=== PATIENT | female | born 1995 | race Caucasian/White ===

== ENCOUNTER 2019-05-09 13:01 | Emergency (ER) | payer MEDICAID, SELFPAY ==
[2019-05-09 13:05] VITALS: BP 119/86; PULSE 117; RESP 17; TEMP 37.4; O2SAT 97; BMI 33.0
--- NOTE | 2019-05-09 13:13 | ED_ITS ---
HPI - Abdominal Pain General: Chief Complaint: Abdominal Pain Stated Complaint: , ABDOMEN PAIN Time Seen by Provider: 05/09/19 13:07 History of Present Illness: HPI narrative: Patient is G2, P1 23-year-old female who comes to the ED for abdominal pain after a positive test. Patient states her last period was about 2 weeks ago. She took a test this morning and it was positive. She was having abdominal cramping today. Denies any vaginal discharge or any vaginal bleeding, nausea, vomiting or fevers. Associated Symptoms: Denies chills, constipation, diarrhea, dysuria, fever(s), hematochezia, hematuria, nausea and vomiting Review of Systems Const: Denies: fever, chills or fatigue Eyes: Denies: change in vision or eye discomfort ENMT: Denies: throat pain, painful swallowing, nasal discharge or nasal congestion Card: Denies: chest pain, palpitations, edema, swelling of feet/ankles, shortness of breath on exertion or shortness of breath when lying down Resp: Denies: shortness of breath, productive cough or non-productive cough GI: Denies: abdominal pain, nausea, vomiting, diarrhea, constipation or blood in stool : Denies: flank pain, painful urination or blood in urine Musc: Denies: neck pain, back pain or extremity swelling Skin/Breast: Denies: rash or new lesion Neuro: Denies: headache, numbness in extremities or weakness in extremities PFS ED PFSH: Social History Smoking and tobacco status: current every day smoker Physical Exam Const: COMMON NORMALS: oriented x3 HENMT: COMMON NORMALS: normocephalic HEAD & SCALP: normocephalic MOUTH: oral and palatal mucosa normal THROAT: posterior oropharynx normal and uvula midline Neck/C-Spine: COMMON NORMALS: supple GENERAL: Yes normal visual inspection Resp: COMMON NORMALS: normal respiratory effort, no retractions, no use of accessory muscles and clear to auscultation bilaterally AUSCULTATION: clear to auscultation bilaterally Cardio: COMMON NORMALS: regular rate, regular rhythm, S1 normal heart sound, S2 normal heart sound, no gallops, no clicks, no murmurs and peripheral pulses 2+ throughout RATE: regular rate RHYTHM: regular rhythm HEART SOUNDS: S1 normal and S2 normal PERIPHERAL PULSES: pulses 2+ throughout GI: COMMON NORMALS: normal to inspection, nondistended, normoactive bowel sounds, soft to palpation, non-tender and no masses PALPATION: Yes soft : COMMON NORMALS: Yes no CVA tenderness BLADDER/KIDNEY EXAM: Yes no CVA tenderness Back/Pelvis: COMMON NORMALS: no CVA tenderness Extremity: COMMON NORMALS: normal to inspection and normal capillary refill Neuro: COMMON NORMALS: oriented x3 GAIT: Yes normal gait Skin: GENERAL SKIN EXAM: dry skin Course Vital Signs: Vital signs: Vital Signs Temperature 99.3 F 05/09/19 13:05 Pulse Rate 72 05/09/19 15:20 Respiratory Rate 17 05/09/19 15:20 Blood Pressure 131/68 05/09/19 15:20 Pulse Oximetry 99 05/09/19 15:20 MDM - Abdominal Pain MDM Narrative: Medical decision making narrative: Patient is a 23-year-old female who comes into the ED after a positive test with some abdominal cramping. Patient has no discharge or bleeding. hCG quant was 150. Patient was told to return in 72 hours if she is having any symptoms such as severe abdominal pain, vaginal bleeding or fevers. I told her to call her MACHINE COIL ASSEMBLER doctor to set up an appointment. Patient understood and agreed with plan. Lab Data: Attestation: I reviewed the patient's lab results. Labs: Lab Results 05/09/19 05/09/19 05/09/19 Range/Units 13:38 13:38 14:13 WBC 10.3 H (4.0-10.0) 10^3/ uL RBC 4.89 (4.1-5.3) 10^6/u L Hgb 14.0 (11.5-15.3) g/dL Hct 43.6 (37.0-47.0) % MCV 89.2 (81-99) fL MCH 28.6 (28.0-34.0) pg MCHC 32.1 (30.0-36.0) g/dL RDW 13.4 (12.1-15.1) % Plt Count 324 (130-400) 10^3/c mm MPV 10.3 (7.4-10.4) fL Neut % (Auto) 72.8 % Lymph % (Auto) 19.6 % [place] % (Auto) 5.9 % Eos % (Auto) 1.0 % Baso % (Auto) 0.5 % Neut # (Auto) 7.5 (1.8-7.7) 10^3/u L Lymph # (Auto) 2.0 (0.8-4.8) 10^3/u L [place] # (Auto) 0.6 (0.2-0.9) 10^3/u L Eos # (Auto) 0.1 (0.0-0.8) 10^3/u L Baso # (Auto) 0.1 (0.0-0.1) 10^3/u L Nucleated RBC % (a uto) 0 % Nucleated RBCs # 0.0 /100WBC Sodium 135 L (136-145) mmol/L Potassium 3.8 (3.5-5.1) mmol/L Chloride 103 (98-107) mmol/L Carbon Dioxide 23 (22-29) mmol/L Anion Gap 12.8 (5-19) BUN 11 (6-20) mg/dL Creatinine 0.6 (0.5-0.9) mg/dL GFR Calculation 123.9 (90-130) mL/min Glucose 99 (65-115) mg/dL Calculated Osmolal ity 276 L (285-295) mOsm/k g Calcium 9.9 (8.5-10.5) mg/dL Total Bilirubin 0.2 (0.15-1.2) mg/dL AST 14 (0-32) U/L ALT 11 (0-33) U/L Alkaline Phosphata se 52 (35-105) IU/L Total Protein 7.4 (6.6-8.7) g/dL Albumin 4.3 (3.5-5.2) g/dL Globulin 3.1 (1.3-4.6) g/dL Ser , Aayush i-Qnt 153.10 mIU/mL Urine Color Yellow (Yellow) Urine Appearance Hazy A (CLEAR) Urine pH 8 H (5-7) Ur Specific Gravit y 1.015 (1.005-1.030) Urine Protein Neg (Negative) Urine Glucose (UA) Norm (Normal) Urine Ketones Negative (Negative) Urine Blood Neg (Negative) Urine Nitrate Negative (Negative) Urine Bilirubin Neg (NEGATIVE) Prot Sulfosalicyli c Acd Negative Urine Urobilinogen Norm (Negative) mg/dL Ur Leukocyte Liv ase 1+ H (Negative) Urine RBC None (0-2) /hpf Urine WBC 5-10 H (0-5) /hpf Ur Squamous Epith Cells 55-80 H (0-5) Amorphous Sediment 2+ Urine Bacteria 1+ H (NONE) Discharge Plan Discharge Patient Disposition: Home, Self-Care Clinical Impression: Qualifiers: Weeks of gestation: less than 8 weeks Qualified Code(s): Z3A.01 - Less than 8 weeks gestation of Condition: Stable Prescriptions: No Action Tylenol Extra Strength 500 mg Tablet 1,000 mg PO PRN RF: 0 Discharge Orders: Discharge Order (Routine); Ordered 05/09/19 Ordered By: Evreardo Ambrose Referrals: Kindra Gong APN [Primary Care Provider] - Jani Sarmiento APN [Family Provider] - Discharge Diet: Regular Discharge Activity: Resume usual activity Patient Instructions: (ED), Abdominal Pain in (ED) Activity Restrictions/Additional Instructions: Follow-up with your MACHINE COIL ASSEMBLER doctor in the next 2 to set up appointment. Return to the ED in the next 72 hours if you are having continuing abdominal pain, vaginal bleeding, fevers or chills return to the ED for reevaluation. Drink plenty fluids stay hydrated. Discharge Date/Time: 05/09/19 15:21 Coding Level of Care Code ED Outreach Educator for Syl Fwheidi Exam Comprehensive
[2019-05-09 13:56] LABS: Basophils # 0.1 10^3/uL (0.0-0.1); Basophils % 0.5 %; Eosinophils # 0.1 10^3/uL (0.0-0.8); Hematocrit 43.6 % (37.0-47.0); Lymphocytes % 19.6 %; Mean Corpuscular HGB Conc 32.1 g/dL (30.0-36.0); Mean Corpuscular Hemoglobin 28.6 pg (28.0-34.0); Mean Corpuscular Volume 89.2 fL (81-99); Mean Platelet Volume 10.3 fL (7.4-10.4); Monocytes # 0.6 10^3/uL (0.2-0.9); Monocytes % 5.9 %; Neutrophils # 7.5 10^3/uL (1.8-7.7); Neutrophils % 72.8 %; Nucleated Red Blood Cells % 0 %; Platelet Count 324 10^3/cmm (130-400); Red Blood Count 4.89 10^6/uL (4.1-5.3); Red Cell Distribution Width 13.4 % (12.1-15.1); White Blood Count 10.3 10^3/uL (4.0-10.0)
[2019-05-09 14:24] LABS: Alanine Aminotransferase 11 U/L (0-33); Albumin Level 4.3 g/dL (3.5-5.2); Alkaline Phosphatase 52 IU/L (35-105); Anion Gap 12.8 (5-19); Aspartate Amino Transferase 14 U/L (0-32); Blood Urea Nitrogen 11 mg/dL (6-20); Calcium 9.9 mg/dL (8.5-10.5); Carbon Dioxide 23 mmol/L (22-29); Chloride 103 mmol/L (98-107); Globulin 3.1 g/dL (1.3-4.6); Glomerular Filtration Rate 123.9 mL/min (90-130); Glucose 99 mg/dL (65-115); Osmolality Calculated 276 mOsm/kg (285-295); Potassium 3.8 mmol/L (3.5-5.1); Sodium 135 mmol/L (136-145); Total Bilirubin 0.2 mg/dL (0.15-1.2); Total Protein 7.4 g/dL (6.6-8.7)
[2019-05-09 14:43] LABS: Urine Appearance Hazy (CLEAR); Urine Color Yellow (Yellow)
[2019-05-09 14:44] LABS: Bilirubin Urine Neg (NEGATIVE); Blood Urine Neg (Negative); Glucose Urine UA Norm (Normal); Ketones Urine Negative (Negative); Leukocyte Esterase Urine 1+ (Negative); Nitrate Urine Negative (Negative); Protein Urine Neg (Negative); Specific Gravity, Urine 1.015 (1.005-1.030); Sulfosalicylic Acid Urine Negative; Urobilinogen Urine Norm (Negative); pH Urine 8 (5-7)
[2019-05-09 14:54] LABS: Squamous Epithelial Cell Urine 55-80 (0-5)
[2019-05-09 14:55] LABS: Add Urine Culture? Yes; Amorphous Sediment Urine 2+; Bacteria Urine 1+
[2019-05-09 15:20] VITALS: BP 131/68; PULSE 72; RESP 17; O2SAT 99
== END 2019-05-09 15:21 | disposition home or self-care (01) ==
PROVIDERS: Emergency Provider Physician Assistant; Family Provider Nurse Practitioner Family; PCP Nurse Practitioner Family
DX: O26.891 Other specified pregnancy related conditions, first trimester (principal); R10.9 Unspecified abdominal pain; Z3A.08 8 weeks gestation of pregnancy; O99.331 Smoking (tobacco) complicating pregnancy, first trimester; F17.210 Nicotine dependence, cigarettes, uncomplicated
CPT/HCPCS: 12345; 36415; 80053; 81001; 84702; 85025; 87086; 99282

== ENCOUNTER 2019-05-12 18:02 | Emergency (ER) | payer MEDICAID, SELFPAY ==
[2019-05-12 18:13] VITALS: BMI 32.8
[2019-05-12 18:14] VITALS: BP 130/69; PULSE 98; RESP 16; TEMP 37.6; O2SAT 98
--- NOTE | 2019-05-12 18:16 | ED_ITS ---
HPI - Abdominal Pain General: Chief Complaint: Abdominal Pain Stated Complaint: abd pain Time Seen by Provider: 05/12/19 18:05 History of Present Illness: HPI narrative: Patient is a 23-year-old G2, P1 female who comes to the ED with abdominal pain. She was seen here in the ED 3 days ago due to a positive at-home test and some abdominal pain. Last. Was about 2 to 3 weeks ago. She states she currently having abdominal pain that comes and goes she rates the pain as a 1 or 2 out of 10. She does have some nausea in the mornings. She denies any fevers, vomiting, vaginal discharge or bleeding. She went and saw her PCP yesterday and she was given a prescription for vitamins and Zofran for nausea. Patient states she does not want any pain med for her abdominal pain. Associated Symptoms: Reports nausea; Denies chills, constipation, diarrhea, dysuria, fever(s), hematochezia, hematuria and vomiting Review of Systems Const: Denies: fever, chills or fatigue Eyes: Denies: change in vision or eye discomfort ENMT: Denies: throat pain, painful swallowing, nasal discharge or nasal congestion Card: Denies: chest pain, palpitations, edema, swelling of feet/ankles, shortness of breath on exertion or shortness of breath when lying down Resp: Denies: shortness of breath, productive cough or non-productive cough GI: Reports: abdominal pain and nausea; Denies: vomiting, diarrhea, constipation or blood in stool : Denies: flank pain, painful urination, blood in urine, vaginal bleeding or vaginal discharge Musc: Denies: neck pain, back pain or extremity swelling Skin/Breast: Denies: rash or new lesion Neuro: Denies: headache, numbness in extremities or weakness in extremities PFS ED PFSH: Social History Smoking and tobacco status: current every day smoker Physical Exam Narrative: EXAM NARRATIVE: Patient is a 23-year-old female who is sitting comfortably on the exam bed when I enter the room. She appears in no acute distress or pain. Const: COMMON NORMALS: oriented x3 HENMT: COMMON NORMALS: normocephalic HEAD & SCALP: normocephalic MOUTH: oral and palatal mucosa normal THROAT: posterior oropharynx normal and uvula midline Neck/C-Spine: COMMON NORMALS: supple GENERAL: Yes normal visual inspection Lymph: LYMPHATIC: no lymphadenopathy noted (No cervical lymph nodes palpated.) Resp: COMMON NORMALS: normal respiratory effort, no retractions, no use of accessory muscles and clear to auscultation bilaterally EFFORT & INSPECTION: Yes able to speak in complete sentences, No abnormal respiratory pattern, No tachypneic, No respiratory distress and No labored AUSCULTATION: clear to auscultation bilaterally Cardio: COMMON NORMALS: regular rate, regular rhythm, S1 normal heart sound, S2 normal heart sound, no gallops, no clicks, no murmurs and peripheral pulses 2+ throughout RATE: regular rate RHYTHM: regular rhythm HEART SOUNDS: S1 normal and S2 normal PERIPHERAL PULSES: pulses 2+ throughout GI: COMMON NORMALS: normal to inspection, nondistended, normoactive bowel sounds, soft to palpation, non-tender, no hepatosplenomegaly and no masses INSPECTION: Yes central obesity PALPATION: Yes soft, No tender, No guarding and Yes no hepatosplenomegaly : COMMON NORMALS: Yes no CVA tenderness BLADDER/KIDNEY EXAM: Yes no CVA tenderness Back/Pelvis: COMMON NORMALS: no CVA tenderness Extremity: COMMON NORMALS: normal to inspection Neuro: COMMON NORMALS: oriented x3 GAIT: Yes normal gait Skin: COMMON NORMALS: no rashes or lesions noted GENERAL SKIN EXAM: no rashes or lesions noted and dry skin Course Vital Signs: Vital signs: Vital Signs Temperature 99.6 F 05/12/19 18:14 Pulse Rate 80 05/12/19 19:59 Respiratory Rate 16 05/12/19 19:59 Blood Pressure 130/69 05/12/19 18:14 Pulse Oximetry 96 05/12/19 19:59 MDM - Abdominal Pain MDM Narrative: Medical decision making narrative: Patient is a 23-year-old female that is and has abdominal pain. She does not have any vaginal bleeding or vaginal discharge. Her abdominal pain is mild and she describes it about a 1-2 out of 10 that comes and goes. Physical exam shows a patient who is showing no acute distress or pain. hCG quant test was 562. 3 days ago hCG quant was 150. appears to be progressing normally. CBC and CMP were unremarkable. Urinalysis showed some bacteria and elevated white blood cell count. Patient diagnosed with under 8 weeks and a UTI. She was given an antibiotic for her UTI. She has already seen her PCP for within the last 2 days and told to schedule her next follow-up appointment. I told patient she can return to the ED for reevaluation if she is having worsening symptoms or vaginal bleeding or fevers. Lab Data: Attestation: I reviewed the patient's lab results. Labs: Lab Results 05/12/19 05/12/19 05/12/19 Range/Units 18:21 18:21 18:41 WBC 9.9 (4.0-10.0) 10^3/ uL RBC 4.42 (4.1-5.3) 10^6/u L Hgb 12.8 (11.5-15.3) g/dL Hct 39.2 (37.0-47.0) % MCV 88.7 (81-99) fL MCH 29.0 (28.0-34.0) pg MCHC 32.7 (30.0-36.0) g/dL RDW 13.2 (12.1-15.1) % Plt Count 293 (130-400) 10^3/c mm MPV 10.3 (7.4-10.4) fL Neut % (Auto) 59.8 % Lymph % (Auto) 28.3 % [place] % (Auto) 9.6 % Eos % (Auto) 1.6 % Baso % (Auto) 0.5 % Neut # (Auto) 5.9 (1.8-7.7) 10^3/u L Lymph # (Auto) 2.8 (0.8-4.8) 10^3/u L [place] # (Auto) 1.0 H (0.2-0.9) 10^3/u L Eos # (Auto) 0.2 (0.0-0.8) 10^3/u L Baso # (Auto) 0.1 (0.0-0.1) 10^3/u L Nucleated RBC % (a uto) 0 % Nucleated RBCs # 0.0 /100WBC Sodium 138 (136-145) mmol/L Potassium 3.8 (3.5-5.1) mmol/L Chloride 104 (98-107) mmol/L Carbon Dioxide 23 (22-29) mmol/L Anion Gap 14.8 (5-19) BUN 11 (6-20) mg/dL Creatinine 0.7 (0.5-0.9) mg/dL GFR Calculation 103.7 (90-130) mL/min Glucose 99 (65-115) mg/dL Calculated Osmolal ity 282 L (285-295) mOsm/k g Calcium 9.7 (8.5-10.5) mg/dL Total Bilirubin 0.2 (0.15-1.2) mg/dL AST 15 (0-32) U/L ALT < 5 (0-33) U/L Alkaline Phosphata se 52 (35-105) IU/L Total Protein 7.1 (6.6-8.7) g/dL Albumin 4.2 (3.5-5.2) g/dL Globulin 2.9 (1.3-4.6) g/dL Ser , Aayush i-Qnt 562.10 mIU/mL Urine Color Yellow (Yellow) Urine Appearance Cloudy (CLEAR) Urine pH 6 (5-7) Ur Specific Gravit y 1.020 (1.005-1.030) Urine Protein Neg (Negative) Urine Glucose (UA) Norm (Normal) Urine Ketones Negative (Negative) Urine Blood Neg (Negative) Urine Nitrate Negative (Negative) Urine Bilirubin Neg (NEGATIVE) Urine Urobilinogen Norm (Negative) mg/dL Ur Leukocyte Liv ase 2+ H (Negative) Urine RBC 0-4 H (0-2) /hpf Urine WBC 25-40 H (0-5) /hpf Ur Squamous Epith Cells 25-40 H (0-5) Urine Bacteria 1+ H (NONE) Discharge Plan Discharge Patient Disposition: Home, Self-Care Clinical Impression: UTI (urinary tract infection) in in first trimester Qualifiers: Weeks of gestation: less than 8 weeks Qualified Code(s): Z3A.01 - Less than 8 weeks gestation of Condition: Stable Prescriptions: New nitrofurantoin macrocrystal 100 mg capsule 100 mg PO BID 5 Days Qty: 10 RF: 0 No Action Zofran 4 mg Tablet 4 mg PO Q4H PRN (Reason: Nausea) RF: 0 28 mg iron- 800 mcg Tablet 1 tab PO DAILY RF: 0 acetaminophen [Tylenol Extra Strength] 500 mg Tablet 1,000 mg PO PRN RF: 0 Discharge Orders: Discharge Order (Routine); Ordered 05/12/19 Ordered By: Everardo Ambrose Referrals: Jani Sarmiento APN [Family Provider] - Discharge Diet: Regular Discharge Activity: Resume usual activity and Increase activity as tolerated Patient Instructions: (ED), Urinary Tract Infection in Women (ED) Activity Restrictions/Additional Instructions: Follow-up with your PCP or water quality specialist doctor at your next scheduled first trimester appointment. Take full course of antibiotic as prescribed. Continue taking your home meds such as vitamins and the previously prescribed Zofran as needed for nausea. Return to the ED if you are having worsening or severe abdominal pain or vaginal bleeding or fevers. Discharge Date/Time: 05/12/19 20:00 Coding Level of Care Code ED Territory Sales Consultant for Henryg Fwd Exam Comprehensive
[2019-05-12 18:27] LABS: Basophils # 0.1 10^3/uL (0.0-0.1); Basophils % 0.5 %; Eosinophils # 0.2 10^3/uL (0.0-0.8); Eosinophils % 1.6 %; Hematocrit 39.2 % (37.0-47.0); Hemoglobin 12.8 g/dL (11.5-15.3); Lymphocytes # 2.8 10^3/uL (0.8-4.8); Lymphocytes % 28.3 %; Mean Corpuscular HGB Conc 32.7 g/dL (30.0-36.0); Mean Corpuscular Volume 88.7 fL (81-99); Mean Platelet Volume 10.3 fL (7.4-10.4); Monocytes % 9.6 %; Neutrophils # 5.9 10^3/uL (1.8-7.7); Neutrophils % 59.8 %; Nucleated Red Blood Cells % 0 %; Platelet Count 293 10^3/cmm (130-400); Red Blood Count 4.42 10^6/uL (4.1-5.3); Red Cell Distribution Width 13.2 % (12.1-15.1); White Blood Count 9.9 10^3/uL (4.0-10.0)
--- NOTE | 2019-05-12 18:36 | PC.NURSE ---
Pt given clean catch kit with instructions, ambulated to BR with no assist.
[2019-05-12 18:52] LABS: Alanine Aminotransferase < 5 U/L (0-33); Albumin Level 4.2 g/dL (3.5-5.2); Alkaline Phosphatase 52 IU/L (35-105); Anion Gap 14.8 (5-19); Aspartate Amino Transferase 15 U/L (0-32); Blood Urea Nitrogen 11 mg/dL (6-20); Calcium 9.7 mg/dL (8.5-10.5); Carbon Dioxide 23 mmol/L (22-29); Chloride 104 mmol/L (98-107); Globulin 2.9 g/dL (1.3-4.6); Glomerular Filtration Rate 103.7 mL/min (90-130); Glucose 99 mg/dL (65-115); Osmolality Calculated 282 mOsm/kg (285-295); Potassium 3.8 mmol/L (3.5-5.1); Sodium 138 mmol/L (136-145); Total Bilirubin 0.2 mg/dL (0.15-1.2); Total Protein 7.1 g/dL (6.6-8.7)
[2019-05-12 19:22] LABS: Add Urine Culture? No; Bacteria Urine 1+; Bilirubin Urine Neg (NEGATIVE); Blood Urine Neg (Negative); Glucose Urine UA Norm (Normal); Ketones Urine Negative (Negative); Leukocyte Esterase Urine 2+ (Negative); Nitrate Urine Negative (Negative); Protein Urine Neg (Negative); RBC Urine 0-4 /hpf (0-2); Squamous Epithelial Cell Urine 25-40 (0-5); Urine Appearance Cloudy (CLEAR); Urine Color Yellow (Yellow); Urobilinogen Urine Norm (Negative); WBC Urine 25-40 /hpf (0-5); pH Urine 6 (5-7)
[2019-05-12 19:59] VITALS: PULSE 80; RESP 16; O2SAT 96
== END 2019-05-12 20:00 | disposition home or self-care (01) ==
PROVIDERS: Emergency Provider Physician Assistant; Family Provider Nurse Practitioner Family
DX: O23.41 Unspecified infection of urinary tract in pregnancy, first trimester (principal); Z3A.00 Weeks of gestation of pregnancy not specified; O99.331 Smoking (tobacco) complicating pregnancy, first trimester; F17.200 Nicotine dependence, unspecified, uncomplicated
CPT/HCPCS: 12345; 80053; 81001; 84702; 85025; 99282; A9270

== ENCOUNTER 2019-06-20 07:37 | Outpatient (CLI) | payer MEDICAID, SELFPAY ==
--- NOTE | 2019-06-20 07:42 | US_ITS ---
WS: [id number] EARLY OBSTETRICAL ULTRASOUND (<14 WEEKS). HISTORY: SCREENING FOR UNCERTAIN DATES COMPARISON: None available. Single intrauterine gestational sac is identified. Cardiac activity at 164 BPM. B[place]elia-rump length veronique sures 3.2 cm which corresponds to a gestation of 10w0d. Normal-appearing yolk sac and amnion demonstr ated. No subchorionic hemorrhage. No free fluid. Normal size ovaries with no mass. Normal vascularity. Cervix is closed and normal length of 4.5 cm. US/US OB <= 14 weeks fetus [id number] IMPRESSION: 1. Single intrauterine gestation of 10 weeks 0 days with an EDC of 01/16/2020. 2. Normal cardiac rate.
== END 2019-06-20 07:38 | disposition home or self-care (01) ==
LOC: RAD 07:41
PROVIDERS: PCP Nurse Practitioner Family; Visit Provider Family Medicine
DX: Z36.87 Encounter for antenatal screening for uncertain dates (principal); Z3A.10 10 weeks gestation of pregnancy
CPT/HCPCS: 76801

== ENCOUNTER 2019-08-10 06:48 | Emergency (ER) | payer MEDICAID, SELFPAY ==
[2019-08-10 06:58] VITALS: BP 149/83; PULSE 103; RESP 18; TEMP 36.3; O2SAT 100; BMI 32.3
--- NOTE | 2019-08-10 07:13 | W.ED.ABDPA2 ---
HPI - Abdominal Pain General: Chief Complaint: Abdominal Pain Stated Complaint: ABD PAIN/17 WEEKS PREG Time Seen by Provider: 08/10/19 07:11 History of Present Illness: HPI narrative: Patient is a 24-year-old female that is 17 weeks comes to the ED with UTI symptoms. Patient says symptoms started this morning. She is complaining of lower pelvic pain located in her over the bladder and pain when she urinates. She has some chronic lower back pain and she says this is currently making it feel little worse. She is having some nausea but has not vomited. She took Tylenol this morning to help with abdominal pain and stated she currently does not need any pain meds here in the ED. Patient did say her urine seemed a little darker this morning than usual. Denies any complications with this and has been to all of her OB appointments. She currently does not have any vaginal discharge or vaginal bleeding. Denies any fever, chest pain, shortness of breath, chills, diarrhea, constipation, blood in the stool, hematuria. Associated Symptoms: Reports dysuria and nausea; Denies chills, constipation, diarrhea, fever(s), hematochezia, hematuria and vomiting Related Data: Date of Last Menstrual Period: 04/10/19 Review of Systems Const: Denies: fever(s), chills or fatigue Eyes: Denies: change in vision or eye discomfort ENMT: Denies: throat pain, odynophagia, nasal discharge or nasal congestion Card: Denies: chest pain, palpitations, edema, swelling of feet/ankles, dyspnea on exertion or orthopnea Resp: Denies: dyspnea, productive cough or non-productive cough GI: Reports: abdominal pain and nausea; Denies: vomiting, diarrhea, constipation or hematochezia : Reports: dysuria; Denies: flank pain, hematuria, vaginal bleeding or vaginal discharge Musc: Denies: neck pain, back pain or extremity swelling Skin/Breast: Denies: rash or new lesions Neuro: Denies: headache(s), numbness in extremities or weakness in extremities PFSH ED PFSH: Social History Smoking and tobacco status: current every day smoker Alcohol intake: never Substance/Drug Use: never Female Reproductive History: Date of last menstrual period: 04/10/19 Physical Exam Const: COMMON NORMALS: no acute distress, patient oriented x3 and alert GENERAL APPEARANCE: cooperative and comfortable HENMT: COMMON NORMALS: normocephalic HEAD & SCALP: normocephalic MOUTH: Normal oral and palatal mucosa present THROAT: posterior oropharynx normal and uvula midline Eye: COMMON NORMALS: Equal, round and reactive pupils present PUPIL: Yes Equal, round and reactive pupils present Neck/C-Spine: COMMON NORMALS: supple GENERAL: Yes normal visual inspection Resp: COMMON NORMALS: normal respiratory effort, No retractions, No use of accessory muscles and clear to auscultation bilaterally AUSCULTATION: clear to auscultation bilaterally Cardio: COMMON NORMALS: regular rate, regular rhythm, S1 normal heart sound present, S2 normal heart sound present, No gallops present (Cardio), No clicks present (Cardio), No murmurs present (Cardio) and Peripheral pulses 2+ throughout RATE: regular rate RHYTHM: regular rhythm HEART SOUNDS: S1 normal heart sound present and S2 normal heart sound present PERIPHERAL PULSES: Peripheral pulses 2+ throughout GI: COMMON NORMALS: Normal to inspection, nondistended, normoactive bowel sounds present, Soft to palpation and no masses INSPECTION: Yes gravid abdomen PALPATION: Yes Soft to palpation, Yes Tenderness to palpation present (GI) (tenderness in lower pelvis over the bladder.) Details: other and Yes Bladder palpation abnormal : COMMON NORMALS: Yes no CVA tenderness BLADDER/KIDNEY EXAM: Yes no CVA tenderness and Yes Bladder palpation abnormal Bladder abnormal details: tender Back/Pelvis: COMMON NORMALS: no CVA tenderness Extremity: COMMON NORMALS: normal to inspection and no pedal edema Neuro: COMMON NORMALS: patient oriented x3 SENSORIUM/ORIENTATION: Yes alert GAIT: Yes Normal gait present Skin: COMMON NORMALS: no rashes or lesions noted GENERAL SKIN EXAM: no rashes or lesions noted and dry skin Course ED course: heart tones assessed with Doppler. heart tones captured and rate between 148-155bpm. Vital Signs: Vital signs: Vital Signs Temperature 97.3 F L 08/10/19 06:58 Pulse Rate 82 08/10/19 08:07 Respiratory Rate 17 08/10/19 08:07 Blood Pressure 102/59 08/10/19 08:07 Pulse Oximetry 99 08/10/19 08:07 MDM - Abdominal Pain MDM Narrative: Medical decision making narrative: Patient is a 24-year-old female that is 17 weeks , who comes to the ED with UTI symptoms. Denied any vaginal discharge or vaginal bleeding. Physical exam showed a 24-year-old female is in no acute distress and is sitting comfortably on exam bed when I enter the room. She had some lower pelvic tenderness over the bladder. heart tone Doppler exam performed and captured heart tones at a rate of 148 to 155 bpm. White blood cell count was 10.5 and CMP was unremarkable. Urinalysis showed many white blood cells, positive for nitrates and RBCs. Patient was diagnosed with a UTI and given IV fluids, Zofran and a dose of Macrobid while here in the ED. Patient was sent home with a prescription for Macrobid and told to follow-up at her regularly scheduled OB appointment in a couple weeks. I told patient she can return to the ED for reevaluation if symptoms worsen after being on the antibiotic for couple days. Patient understood and agreed with plan. Lab Data: Attestation: I reviewed the patient's lab results. Labs: Lab Results 08/10/19 08/10/19 08/10/19 Range/Units 07:28 07:41 07:41 WBC 10.5 H (4.0-10.0) 10^3/ uL RBC 4.20 (4.1-5.3) 10^6/u L Hgb 12.2 (11.5-15.3) g/dL Hct 37.5 (37.0-47.0) % MCV 89.3 (81-99) fL MCH 29.0 (28.0-34.0) pg MCHC 32.5 (30.0-36.0) g/dL RDW 13.1 (12.1-15.1) % Plt Count 218 (130-400) 10^3/c mm MPV 10.1 (7.4-10.4) fL Neut % (Auto) 78.9 % Lymph % (Auto) 15.2 % [place] % (Auto) 4.8 % Eos % (Auto) 0.4 % Baso % (Auto) 0.4 % Neut # (Auto) 8.3 H (1.8-7.7) 10^3/u L Lymph # (Auto) 1.6 (0.8-4.8) 10^3/u L [place] # (Auto) 0.5 (0.2-0.9) 10^3/u L Eos # (Auto) 0.0 (0.0-0.8) 10^3/u L Baso # (Auto) 0.0 (0.0-0.1) 10^3/u L Nucleated RBC % (a uto) 0 % Nucleated RBCs # 0.0 /100WBC Sodium 136 (136-145) mmol/L Potassium 3.7 (3.5-5.1) mmol/L Chloride 103 (98-107) mmol/L Carbon Dioxide 23 (22-29) mmol/L Anion Gap 13.7 (5-19) BUN 4 L (6-20) mg/dL Creatinine 0.5 (0.5-0.9) mg/dL GFR Calculation 151.6 H (90-130) mL/min Glucose 81 (65-115) mg/dL Calculated Osmolal ity 277 L (285-295) mOsm/k g Calcium 9.8 (8.5-10.5) mg/dL Total Bilirubin 0.2 (0.15-1.2) mg/dL AST 16 (0-32) U/L ALT 12 (0-33) U/L Alkaline Phosphata se 40 (35-105) IU/L Total Protein 7.0 (6.6-8.7) g/dL Albumin 4.2 (3.5-5.2) g/dL Globulin 2.8 (1.3-4.6) g/dL Lipase 24 (13-60) U/L Urine Color Dark yellow (Yellow) Urine Appearance Cloudy A (CLEAR) Urine pH 5 (5-7) Ur Specific Gravit y 1.020 (1.005-1.030) Urine Protein 3+ H (Negative) Urine Glucose (UA) Norm (Normal) Urine Ketones 1+ H (Negative) Urine Blood 3+ H (Negative) Urine Nitrate Positive H (Negative) Urine Bilirubin 1+ H (NEGATIVE) Urine Urobilinogen 1 H (Negative) mg/dL Ur Leukocyte Liv ase 2+ H (Negative) Urine RBC 15-25 H (0-2) /hpf Urine WBC Too numerous to c nt H (0-5) /hpf Ur Squamous Epith Cells 5-10 H (0-5) Calcium Oxalate Cr ystal 5-10 H /hpf Urine Bacteria 2+ H (NONE) Other Data: Attestation for Other Data: I personally reviewed and interpreted the following: Other Data: I performed heart tones assessment with Doppler. I was able to capture heart tones and a were varying in a range from 148-155 bpm. Discharge Plan Discharge Patient Disposition: Home, Self-Care Clinical Impression: UTI (urinary tract infection) during Qualifiers: Trimester: second trimester Qualified Code(s): O23.42 - Unspecified infection of urinary tract in , second trimester Condition: Stable Prescriptions: New nitrofurantoin macrocrystal 100 mg capsule 100 mg PO Q6H 7 Days Qty: 28 RF: 0 No Action Zofran 4 mg Tablet 4 mg PO Q4H PRN (Reason: Nausea) RF: 0 28 mg iron- 800 mcg Tablet 1 tab PO DAILY RF: 0 acetaminophen [Tylenol Extra Strength] 500 mg Tablet 1,000 mg PO PRN RF: 0 Discharge Orders: Discharge Order (Routine); Ordered 08/10/19 Ordered By: Everardo Ambrose Referrals: Guillermina Gunter APN [Primary Care Provider] - Discharge Diet: Regular Discharge Activity: Resume usual activity Patient Instructions: Urinary Tract Infection in Women (ED) Activity Restrictions/Additional Instructions: Follow-up with medical provider as directed. Take medications as prescribed. Take [id number] Tylenol for pain or fevers. Return to the ER or your medical provider if condition worsens. Please read and understand discharge instructions. If any questions, please ask. Coding Level of Care Code ED Pipe Coverer And Insulator for Syl Fwd Exam Comprehensive
[2019-08-10 07:15] VITALS: O2SAT 100
[2019-08-10] MEDS: sodium chloride 0.9% 1,000 ML 999 ML IV (07:44)
[2019-08-10] MEDS: ondansetron 2 mg/ML SDV 2 mL 4 MG IVP (07:44)
[2019-08-10 07:47] LABS: Basophils % 0.4 %; Eosinophils % 0.4 %; Hematocrit 37.5 % (37.0-47.0); Hemoglobin 12.2 g/dL (11.5-15.3); Lymphocytes # 1.6 10^3/uL (0.8-4.8); Lymphocytes % 15.2 %; Mean Corpuscular HGB Conc 32.5 g/dL (30.0-36.0); Mean Corpuscular Volume 89.3 fL (81-99); Mean Platelet Volume 10.1 fL (7.4-10.4); Monocytes # 0.5 10^3/uL (0.2-0.9); Monocytes % 4.8 %; Neutrophils # 8.3 10^3/uL (1.8-7.7); Neutrophils % 78.9 %; Nucleated Red Blood Cells % 0 %; Platelet Count 218 10^3/cmm (130-400); Red Cell Distribution Width 13.1 % (12.1-15.1); White Blood Count 10.5 10^3/uL (4.0-10.0)
[2019-08-10 07:58] LABS: Bilirubin Urine 1+ (NEGATIVE); Blood Urine 3+ (Negative); Glucose Urine UA Norm (Normal); Ketones Urine 1+ (Negative); Leukocyte Esterase Urine 2+ (Negative); Nitrate Urine Positive (Negative); Protein Urine 3+ (Negative); Urine Appearance Cloudy (CLEAR); Urine Color Dark Yellow (Yellow); Urobilinogen Urine 1 mg/dL (Negative); pH Urine 5 (5-7)
[2019-08-10 08:01] LABS: RBC Urine 15-25 /hpf (0-2)
[2019-08-10 08:02] LABS: Bacteria Urine 2+; WBC Urine TOO NUMEROUS TO CNT /hpf (0-5)
[2019-08-10 08:03] LABS: Add Urine Culture? Yes
[2019-08-10 08:07] VITALS: BP 102/59; PULSE 82; RESP 17; O2SAT 99
[2019-08-10 08:07] LABS: Alanine Aminotransferase 12 U/L (0-33); Albumin Level 4.2 g/dL (3.5-5.2); Alkaline Phosphatase 40 IU/L (35-105); Anion Gap 13.7 (5-19); Aspartate Amino Transferase 16 U/L (0-32); Blood Urea Nitrogen 4 mg/dL (6-20); Calcium 9.8 mg/dL (8.5-10.5); Carbon Dioxide 23 mmol/L (22-29); Chloride 103 mmol/L (98-107); Globulin 2.8 g/dL (1.3-4.6); Glomerular Filtration Rate 151.6 mL/min (90-130); Glucose 81 mg/dL (65-115); Lipase 24 U/L (13-60); Osmolality Calculated 277 mOsm/kg (285-295); Potassium 3.7 mmol/L (3.5-5.1); Sodium 136 mmol/L (136-145); Total Bilirubin 0.2 mg/dL (0.15-1.2)
[2019-08-10 08:24] VITALS: BP 109/66; PULSE 84; O2SAT 100
[2019-08-10] MEDS: nitrofurantoin SR (BID) 100 mg Capsule PO (08:30)
== END 2019-08-10 08:24 | disposition home or self-care (01) ==
PROVIDERS: Emergency Provider Physician Assistant; PCP Nurse Practitioner Family
DX: O23.42 Unspecified infection of urinary tract in pregnancy, second trimester (principal); Z3A.17 17 weeks gestation of pregnancy; O99.332 Smoking (tobacco) complicating pregnancy, second trimester; F17.210 Nicotine dependence, cigarettes, uncomplicated
CPT/HCPCS: 12345; 80053; 81001; 83690; 85025; 87077; 87086; 87186; 96361; 96374; 96375; 99283; J2405; J7030

== ENCOUNTER 2019-08-31 13:15 | Outpatient (CLI) | payer MEDICAID, SELFPAY ==
--- NOTE | 2019-08-31 13:19 | US_ITS ---
WS: [id number] OBSTETRICAL ULTRASOUND COMPLETE HISTORY: ANATOMY CHECK COMPARISON: 06/20/2019 Single intrauterine gestation in Cephalic presentation. Cervix is Closed and normal length. Cervical length is 4.1 cm. Normal amount of amniotic fluid surrounds the fetus. Placenta: Posterior and fundal. Placenta grade 1 Heart: 153 BPM. Four chambers are identified. Anatomy: Intracranial structures and spine are normal. kidneys, stomach and urinary bladd er are unremarkable. Abdominal wall, three-vessel cord and cord insertion site are normal. 4 extremities are present. profile: Unremarkable. Gender: Male. measurements: BPD = 4.8 cm = 20w4d HC = 18.6 cm = 21w0d AC = 16.0 cm = 21w1d FL = 3.5 cm = 21w1d EFW: 398 g., Measurements are internally concordant. AGA by ultrasound: 21w0d ADRIA by ultrasound: 01/11/2020 US/US OB >= 14 weeks fetus [id number] IMPRESSION: 1. Single intrauterine gestation of 21w0d with an ADRIA of 01/11/2020. Appropria te growth since the prior ultrasound. 2. Unremarkable screening survey of anatomy.
== END 2019-08-31 13:16 | disposition home or self-care (01) ==
LOC: RAD 13:15
PROVIDERS: PCP Nurse Practitioner Family; Visit Provider Family Medicine
DX: Z36.89 Encounter for other specified antenatal screening (principal); Z3A.21 21 weeks gestation of pregnancy
CPT/HCPCS: 76805

== ENCOUNTER 2019-09-01 22:09 | Outpatient (CLI) | payer MEDICAID, SELFPAY ==
[2019-09-01 22:37] VITALS: BP 110/60; PULSE 93
[2019-09-01 22:52] VITALS: TEMP 37.1
[2019-09-01 22:54] VITALS: BMI 32.4
[2019-09-01 23:15] LABS: Urine Appearance Hazy (CLEAR); Urine Color Other (Yellow); pH Urine 8 (5-7)
[2019-09-01 23:16] LABS: Add Urine Microscopic? YES; Bilirubin Urine Neg (NEGATIVE); Blood Urine 3+ (Negative); Glucose Urine UA Norm (Normal); Ketones Urine Negative (Negative); Leukocyte Esterase Urine 2+ (Negative); Nitrate Urine Negative (Negative); Protein Urine 3+ (Negative); Sulfosalicylic Acid Urine Positive (Negative); Urobilinogen Urine Norm (Negative)
[2019-09-01 23:17] LABS: Add Urine Culture? Yes; Bacteria Urine 2+; RBC Urine 40-50 /hpf (0-2); WBC Urine 25-40 /hpf (0-5)
[2019-09-02 00:37] VITALS: BP 107/56; PULSE 86
[2019-09-02] MEDS: cephALEXin 500 mg Capsule PO (00:40)
[2019-09-02 00:42] VITALS: BP 107/56; PULSE 86; RESP 16; TEMP 37
[2019-09-02 00:43] VITALS: BP 107/56; PULSE 86; RESP 16; TEMP 37
== END 2019-09-02 00:48 | disposition home or self-care (01) ==
LOC: OPOB 22:21 → OBGYN 22:21
PROVIDERS: PCP Nurse Practitioner Family; Visit Provider Family Medicine
DX: O23.40 Unspecified infection of urinary tract in pregnancy, unspecified trimester (principal); Z3A.00 Weeks of gestation of pregnancy not specified
CPT/HCPCS: 81001; 81003; 99211

== ENCOUNTER 2019-09-08 20:02 | Emergency (ER) | payer MEDICAID, SELFPAY ==
[2019-09-08 20:05] VITALS: BP 105/67; PULSE 89; RESP 19; TEMP 37.1; O2SAT 99; BMI 32.3
[2019-09-08 20:09] VITALS: RESP 18
--- NOTE | 2019-09-08 20:15 | ED_ITS ---
HPI - Female Genitourinary General: Chief complaint: Urogenital-Female Stated complaint: vag pain/ob ref Time Seen by Provider: 09/08/19 20:10 Source: patient Mode of arrival: ambulatory Limitations: no limitations History of Present Illness: HPI Narrative: 24-year-old female who had a thrombosed hemorrhoid removed yesterday. She states she has had sharp pain at her rectum since then especially with wiping. She has not been taking any meds or creams. Denies any fever. Patient was seen at labor and delivery and cleared from a standpoint before being sent to the ER. Associated symptoms: Deny abdominal pain, headache(s) or nausea Date of Last Menstrual Period: 04/10/19 Review of Systems Const: Denies: fever(s), chills, body aches or change in appetite Eyes: Denies: blurry vision or eye discomfort ENMT: Denies: throat pain or dental pain Card: Denies: chest pain Resp: Denies: dyspnea GI: Denies: abdominal pain, nausea, vomiting or diarrhea : Denies: dysuria Musc: Denies: neck pain or back pain Skin/Breast: Denies: rash Neuro: Denies: headache(s) Psych: Denies: depression Ever/Lymph: Denies: easy bruising All/Imm: Denies: urticaria PFSH ED PFSH: Social History Smoking and tobacco status: current every day smoker Alcohol intake: never Female Reproductive History: Date of last menstrual period: 04/10/19 Physical Exam Const: COMMON NORMALS: no acute distress, patient oriented x3 and healthy appearing HENMT: COMMON NORMALS: normocephalic and atraumatic HEAD & SCALP: normocephalic and atraumatic Eye: COMMON NORMALS: Equal, round and reactive pupils present and EOMs intact bilaterally PUPIL: Yes Equal, round and reactive pupils present Neck/C-Spine: COMMON NORMALS: full ROM and supple Chest: COMMONS NORMALS: normal inspection of the chest and normal palpation of entire chest wall Resp: COMMON NORMALS: normal respiratory effort, No retractions, No use of accessory muscles and clear to auscultation bilaterally AUSCULTATION: clear to auscultation bilaterally Cardio: COMMON NORMALS: regular rate, regular rhythm and No murmurs present (Cardio) RATE: regular rate RHYTHM: regular rhythm GI: COMMON NORMALS: Normal to inspection, nondistended, normoactive bowel sounds present, Soft to palpation, non-tender and no masses PALPATION: Yes Soft to palpation : OTHER: Hemorrhoid at rectum with incision marked from the procedure yesterday Extremity: COMMON NORMALS: normal to inspection and full ROM Neuro: COMMON NORMALS: patient oriented x3, moves all extremities and no focal motor deficits Psych: COMMON NORMALS: mental status grossly normal, Normal thought process present and cooperative THOUGHT PROCESS: Normal thought process present Skin: COMMON NORMALS: no rashes or lesions noted and no wounds GENERAL SKIN EXAM: no rashes or lesions noted Course Vital Signs: Vital signs: Vital Signs Temperature 98.8 F 09/08/19 20:05 Pulse Rate 89 09/08/19 20:05 Respiratory Rate 19 H 09/08/19 20:05 Blood Pressure 105/67 09/08/19 20:05 Pulse Oximetry 99 09/08/19 20:05 MDM - Female MDM Narrative: Medical decision making narrative: Patient presents with a hemorrhoid. Patient is likely having pain from the hemorrhoid in the recent incision. We will place her on Proctofoam and she is stable for discharge. She is to follow-up with her OB in 2 to 4 days and return if worsening. Discharge Plan Discharge Patient Disposition: Home Clinical Impression: Hemorrhoid Qualifiers: Hemorrhoid type: unspecified Qualified Code(s): K64.9 - Unspecified hemorrhoids Condition: Stable Prescriptions: New Proctofoam 1 % foam 1 applic ID BID Qty: 15 RF: 0 No Action PNV cmb#95-ferrous fumarate-FA [] 28 mg iron- 800 mcg Tablet 1 tab PO DAILY RF: 0 Discharge Orders: Discharge Order (Routine); Ordered 09/08/19 Ordered By: Buster Burleson Referrals: Pratima Segovia MD [Hospitalist] - 1-3 days Gunter,NAGI Sarmiento [Primary Care Provider] - Discharge Diet: Advance as tolerated Discharge Activity: Resume usual activity Patient Instructions: Hemorrhoids (ED) Coding Level of Care Code ED Consultant Internship for Syl Frankel
--- NOTE | 2019-09-10 09:25 | PC.NURSE ---
[facility] in [place] called to say pt's insurance won't cover proctofoam 1% and instead will cover proctozone 2.5%. Per verbal approval of Dr. Monteiro this nurse gave pharmacy the okay to switch prescriptions
== END 2019-09-08 20:28 | disposition home or self-care (01) ==
PROVIDERS: Emergency Provider Emergency Medicine; PCP Nurse Practitioner Family
DX: K64.9 Unspecified hemorrhoids (principal); F17.210 Nicotine dependence, cigarettes, uncomplicated
CPT/HCPCS: 12345; 99281

== ENCOUNTER → 2019-10-12 09:12 | Outpatient (BNVA) | payer MEDICAID, SELFPAY | PROVIDERS: PCP Nurse Practitioner Family; Visit Provider Obstetrics & Gynecology | DX: Z34.82 Encounter for supervision of other normal pregnancy, second trimester (principal) | CPT/HCPCS: 82950 ==

== ENCOUNTER → 2019-10-26 08:50 | Outpatient (BNVA) | payer MEDICAID, SELFPAY | PROVIDERS: PCP Nurse Practitioner Family; Visit Provider Obstetrics & Gynecology | DX: Z34.82 Encounter for supervision of other normal pregnancy, second trimester (principal) | CPT/HCPCS: 84315; 85027 ==

== ENCOUNTER 2019-12-03 19:42 | Outpatient (CLI) | payer MEDICAID, SELFPAY ==
[2019-12-03 19:42] VITALS: BMI 34.2
[2019-12-03 20:00] VITALS: RESP 16; TEMP 36.9
[2019-12-03 20:05] VITALS: BP 121/72; PULSE 92
[2019-12-03 21:09] LABS: Urine Appearance Cloudy (CLEAR); Urine Color Yellow (Yellow)
[2019-12-03 21:10] LABS: Amorphous Sediment Urine 1+ /hpf; Bilirubin Urine Neg (Negative); Blood Urine Neg (Negative); Glucose Urine UA Norm (Normal); Ketones Urine Negative (Negative); Leukocyte Esterase Urine Negative (Negative); Nitrate Urine Negative (Negative); Protein Urine Neg (Negative); Urobilinogen Urine Norm (Negative); pH Urine 6 (5-7)
[2019-12-03 21:11] LABS: Add Urine Culture? No; Bacteria Urine TRACE /hpf; WBC Urine 0-4 /hpf (0-5)
[2019-12-03 22:22] VITALS: RESP 16; TEMP 36.7
[2019-12-03 22:23] VITALS: BP 103/60; PULSE 91
[2019-12-03 22:24] VITALS: BP 103/60; PULSE 91; RESP 16; TEMP 36.7
== END 2019-12-03 22:28 | disposition home or self-care (01) ==
LOC: OPOB 19:43 → OBGYN 19:43
PROVIDERS: Visit Provider Obstetrics & Gynecology
DX: O26.899 Other specified pregnancy related conditions, unspecified trimester (principal); Z3A.00 Weeks of gestation of pregnancy not specified; R10.9 Unspecified abdominal pain; M54.5 Low back pain
CPT/HCPCS: 59025; 81001; 99211

== ENCOUNTER 2019-12-10 22:49 | Outpatient (CLI) | payer MEDICAID, SELFPAY ==
[2019-12-10 23:06] VITALS: BMI 34.2
[2019-12-10 23:09] VITALS: RESP 18; TEMP 36.7
[2019-12-10 23:24] VITALS: BP 119/63; PULSE 105
[2019-12-10] MEDS: promethazine 25 mg/mL SDV 1 mL IM (23:35)
[2019-12-11 00:03] VITALS: BP 122/64; PULSE 100
[2019-12-11 00:25] VITALS: RESP 17; TEMP 36.6
== END 2019-12-11 00:30 | disposition home or self-care (01) ==
LOC: OPOB 22:50 → OBGYN 12-11 00:17
PROVIDERS: Visit Provider Obstetrics & Gynecology
DX: O21.9 Vomiting of pregnancy, unspecified (principal); Z3A.00 Weeks of gestation of pregnancy not specified
CPT/HCPCS: 59025; 96372; 99211; J2550

== ENCOUNTER → 2019-12-21 11:03 | Outpatient (BNVA) | payer MEDICAID, SELFPAY | PROVIDERS: Visit Provider Obstetrics & Gynecology | DX: Z34.83 Encounter for supervision of other normal pregnancy, third trimester (principal) | CPT/HCPCS: 84315; 87081 ==

== ENCOUNTER 2020-01-02 22:16 | Outpatient (CLI) | payer MEDICAID, SELFPAY ==
[2020-01-02 22:16] VITALS: BMI 35.3
[2020-01-02 22:54] LABS: Actim Prom Positive
--- NOTE | 2020-01-02 23:00 | P.PCN_ITS ---
Procedure/Consent Procedure Narrative: NONSTRESS TEST: Place of test: [facility] [place] Indication: 24-year-old 2 para 1-abnormal vaginal discharge and abdominal pain Date and time of test: 01/02/2020-11:15 PM Baseline: 130 Variability: Moderate variability Accelerations: Present Decelerations: No decelerations Tocometry: Irregular contractions INTERPRETATION: NST reactive, continue kick counts
[2020-01-03 00:32] VITALS: BP 120/72; PULSE 94; RESP 16
[2020-01-03 06:44] VITALS: BP 120/72; PULSE 94
== END 2020-01-02 23:38 | disposition home or self-care (01) ==
LOC: OPOB 22:20 → OBGYN 22:21
PROVIDERS: Visit Provider Obstetrics & Gynecology
DX: O26.899 Other specified pregnancy related conditions, unspecified trimester (principal); Z3A.00 Weeks of gestation of pregnancy not specified; N89.8 Other specified noninflammatory disorders of vagina
CPT/HCPCS: 12345; 59025; 84112; 99211

== ENCOUNTER → 2020-01-08 10:35 | Outpatient (BNVA) | payer MEDICAID, SELFPAY | PROVIDERS: Visit Provider Obstetrics & Gynecology | DX: Z20.828 Contact with and (suspected) exposure to other viral communicable diseases (principal); Z01.812 Encounter for preprocedural laboratory examination | CPT/HCPCS: 87635 ==

== ENCOUNTER 2020-01-09 16:12 | Outpatient (CLI) | payer MEDICAID, SELFPAY | END 2020-01-09 18:35 | disposition home or self-care (01) | LOC: OPOB 16:36 → OBGYN 18:19 | PROVIDERS: Visit Provider Obstetrics & Gynecology | DX: O26.899 Other specified pregnancy related conditions, unspecified trimester (principal); Z3A.00 Weeks of gestation of pregnancy not specified | CPT/HCPCS: 99211 ==

== ENCOUNTER 2020-01-10 10:40 | Inpatient (IN) | payer MEDICAID, SELFPAY ==
[2020-01-10] VITALS (33 sets, daily range): BP systolic 0–144; BP diastolic 0–79; PULSE 75–101; RESP 16–20; TEMP 36.5–37; O2SAT 96; BMI 35.0
[2020-01-10] MEDS: fentaNYL 50 mcg/mL INJ 2mL IV ×4 (11:20→15:25)
[2020-01-10] MEDS: dextrose 5%-lactated ringers 1,000 ML 125 ML IV (11:21)
[2020-01-10 11:24] LABS: Basophils # 0.1 10^3/uL (0.0-0.1); Basophils % 0.2 %; Hematocrit 37.9 % (37.0-47.0); Hemoglobin 12.4 g/dL (11.5-15.3); Lymphocytes # 1.8 10^3/uL (0.8-4.8); Lymphocytes % 8.5 %; Mean Corpuscular HGB Conc 32.7 g/dL (30.0-36.0); Mean Corpuscular Hemoglobin 29.6 pg (28.0-34.0); Mean Corpuscular Volume 90.5 fL (81-99); Mean Platelet Volume 11.1 fL (7.4-10.4); Monocytes # 1.1 10^3/uL (0.2-0.9); Monocytes % 5.3 %; Neutrophils # 17.71 10^3/uL (1.8-7.7); Neutrophils % 85.4 %; Nucleated Red Blood Cells % 0 %; Platelet Count 265 10^3/cmm (130-400); Red Blood Count 4.19 10^6/uL (4.1-5.3); Red Cell Distribution Width 13.2 % (12.1-15.1); White Blood Count 20.8 10^3/uL (4.0-10.0)
[2020-01-10] MEDS: ondansetron 2 mg/ML SDV 2 mL 4 MG IVP (13:01)
[2020-01-10] MEDS: oxytocin 30 UNIT/500 ML BAG 600 UNIT IV (17:03)
--- NOTE | 2020-01-10 17:13 | PM.DELIVERY ---
Delivery Note: Date of delivery: January 10, 2020 Post-delivery diagnoses: Term delivered Op report anesthesia: None Delivering Physician: Ernst Lynne M.D. Estimated blood loss (mL): 500 Delivery: The patient was noted to be complete and pushing, so was placed in the dorsal lithotomy position, prepped and draped in the usual sterile fashion for a vaginal delivery. Pt. Noted to have epidural anesthesia. At 1657 the patient delivered a viable male weighing 3345 g with scores of 8 and 9 at one and five minutes, respectively. The vertex was delivered spontaneously over intact perineum. The patient was asked to push and the head delivered spontaneously in the DEEDEE position, over an intact perineum. A nuchal cord was checked and none noted. The anterior shoulder delivered easily and the posterior shoulder followed. The remainder of the infant was easily delivered and the oropharynx and nasopharynx was bulb suctioned. The infant was noted to have spontaneous cry and spontaneous movement of all four extremities. The cord was clamped x 2 and cut and noted to have 2 arteries and one vein. The infant was passed to the mother's abdomen where nursing personnel were in attendance. Cord blood sample was then obtained. The placenta delivered intact spontaneously and the uterus was explored. 20 units of Pitocin was placed in the IV bag to firm the uterus. Examination of the cervix and vaginal vault did not reveal any lacerations. A vaginal pack was then placed. Examination of the perineum showed no lacerations. The vaginal pack was then removed. The patient tolerated this procedure well, and recovered in L&D with her infant to the OB young. All sponge and needle counts were correct. Coding Level of Care Code Acute Program Manager Slp for Syl Frankel
[2020-01-10] MEDS: HYDROcodone-acetaminophen 5-325 mg Tablet PO (17:49)
[2020-01-10] MEDS: lanolin oint 7 gm 1 APPLIC TOPICAL (17:50)
[2020-01-10] MEDS: docusate sodium 100 mg Capsule PO (17:50)
[2020-01-10] MEDS: benzocaine-menthol 78 gm Canister 1 SPRAY TOPICAL (17:50)
[2020-01-10] MEDS: ibuprofen 800 mg tablet PO (22:13)
[2020-01-11] MEDS: HYDROcodone-acetaminophen 5-325 mg Tablet PO ×3 (00:22→18:44)
[2020-01-11 04:59] LABS: Hematocrit 31.9 % (37.0-47.0); Hemoglobin 10.5 g/dL (11.5-15.3); Mean Corpuscular HGB Conc 32.9 g/dL (30.0-36.0); Mean Corpuscular Hemoglobin 30.2 pg (28.0-34.0); Mean Corpuscular Volume 91.7 fL (81-99); Mean Platelet Volume 10.2 fL (7.4-10.4); Platelet Count 218 10^3/cmm (130-400); Red Blood Count 3.48 10^6/uL (4.1-5.3); Red Cell Distribution Width 13.2 % (12.1-15.1); White Blood Count 17.6 10^3/uL (4.0-10.0)
[2020-01-11 06:00] VITALS: BP 112/76; PULSE 88; RESP 16; TEMP 36.8; O2SAT 97
[2020-01-11] MEDS: ibuprofen 800 mg tablet PO ×2 (08:26→14:33)
[2020-01-11] MEDS: docusate sodium 100 mg Capsule PO ×2 (08:26→18:45)
[2020-01-11] MEDS: prenatal vitamin Capsule 1 CAP PO (08:26)
[2020-01-11 09:50] VITALS: BP 113/71; PULSE 74; RESP 17; TEMP 36.7
--- NOTE | 2020-01-11 16:19 | P.DS_ITS ---
Discharge Providers PLANNED GIVING OFFICER Date of Admission: 01/10/20 10:40 Date of Discharge: 01/11/20 Attending Provider at Admission: Ernst Lynne MD Attending Provider at Discharge: Ernst Lynne MD Reason for Visit Reason for Visit: Contractions Hospital Course Hospital Course 4-year-old, 2, para 1-0-0-1, with an LMP of 04/10/2019 and an EDC of 01/15/2020 based with an EGA at term 39+3 weeks came to Labor and Delivery in active labor. She progressed to have a spontaneous vaginal delivery with out complications. She delivered a viable male weighing 3345 g with scores of 8 and 9 at one and five minutes, respectively. observation was eventful mild hemorrhage controlled by Cytotec. She is afebrile and hemodynamically stable. Tolerating diet well. Ambulating without difficulty. Information Peripartum Data: Delivery Method: Vaginal Physical Exam Narrative: EXAM NARRATIVE: GA; alert and oriented x 3 HEENT: normal Breasts: engorged Nipples - skin intact Lungs; clear to auscultation Heart: regular rhythm, no murmurs. Abd: Appropriately tender. BS+. Uterine fundus below umbilicus. No Fundal Tenderness. Perineum: normal lochia. Extremities: no edema, no cyanosis, no tenderness. Discharge Data Data Completed and Pending: Labs from last 24 hours 01/11/20 04:48 WBC 17.6 H RBC 3.48 L Hgb 10.5 L Hct 31.9 L MCV 91.7 MCH 30.2 MCHC 32.9 RDW 13.2 Plt Count 218 MPV 10.2 Vitals: Last Vital Signs Temp 98.0 F 01/11/20 09:50 Pulse 74 01/11/20 09:50 Resp 17 01/11/20 09:50 BP 113/71 01/11/20 09:50 Pulse Ox 97 01/11/20 06:00 Discharge Plan Discharge Patient Disposition: Home Condition: Stable Prescriptions: New ferrous sulfate 325 mg (65 mg iron) tablet 325 mg PO BID Qty: 60 RF: 0 ibuprofen 800 mg tablet 800 mg PO TID PRN (Reason: pain) Qty: 60 RF: 0 Continued calcium carbonate [Tums] 200 mg calcium (500 mg) tablet,chewable 400 mg PO BID PRN (Reason: Acid Reflux) RF: 0 PNV cmb#95-ferrous fumarate-FA [] 28 mg iron- 800 mcg Tablet 1 tab PO DAILY RF: 0 Tylenol-Codeine #3 1 cap RF: 0 Discharge Orders: Discharge Order (Routine); Ordered 01/11/20 Ordered By: Ernst Lynne Referrals: Ernst Lynne MD [Physician] - Discharge Diet: As Directed Discharge Activity: Increase activity as tolerated Patient Instructions: and Your Diet (GEN), Breast Care for the Breast Feeding Mother (GEN), Bleeding (GEN), OB Discharge Report, OB Food/Drug Interaction Guide, OB Vaginal Deliveries - [facility] Activity Restrictions/Additional Instructions: 1. Please call [facility] [place] [facility] clinic on next working day to make your post-operative/ appointment in 6 weeks. 2. Please stay home until you come back to the clinic on first post-operative check up. 3. Please follow instructions on your medications CAREFULLY. 4. If you have abdominal incision, do not cover it unless dressing is necessary because of drainage. OK to shower, but avoid bath. Leave steri-strips until they fall off. If they are still on one week after surgery, you may remove them. 5. If you had vaginal surgery, your doctor may instruct you to take SITZ bath. 6. Yellow, blood tinged odorous vaginal discharge is usually normal after hysterectomy or vaginal surgeries. 7. No sexual intercourse, tampons, or douches until you are completely released from the post-operative care. 8. Avoid constipation by eating right and maybe using some Metamucil or Milk of Magnesia. 9. All prescription refills are given during the working hours. Please do no wait till it runs out. Call the clinic at [phone] before your medication runs out. The clinic will get in touch with your doctor to prescribe medications if necessary. 10. Please remain within 40 mile radius from our hospital because emergencies do happen now and then during the post-operative period. 11. If you have stairs at home, take one step at a time slowly and minimize the number of trips. It helps to stay in one floor for the next few days. No lifting except what you can lift by one hand until you are released from the post-operative care. 12. Driving is discouraged until you are well healed. It may be 3-4 weeks before you feel strong enough to drive. You should be able to turn and look through the rear window without pain and you should be able to push the brake pedal very hard without pain before you drive. No fast rules, but SAFETY should be your primary concern. DO NOT drive if you are on sedating medications such as narcotics. 13. Call the clinic (during working hours) to make urgent appointment or go to the Emergency room, if any of the following occurs: i. Vaginal bleeding becomes heavy, more than a period. ii. Incision becomes red and sore, or drains pus. iii. Your temperature is over 100.4 or you have chill. iv. IV site becomes red and swollen (a little ``knot?? is usually OK) v. Persistent nausea and vomiting vi. Persistent constipation or diarrhea vii. Rash or allergic reaction to medications. Discharge Attestations PLANNED GIVING OFFICER Time Spent in Discharge Care*: greater than 30 min Specific Discharge Activities: Specific discharge activities: educating patient and educating and/or supporting family/caregiver Coding Level of Care Code Acute Regulatory Submissions Associate for Syl Frankel
--- NOTE | 2020-01-11 16:48 | PC.RESP ---
Smoking Cessation information sent to patient.
[2020-01-11 18:30] VITALS: BP 118/70; PULSE 68; RESP 17; TEMP 36.6
== END 2020-01-11 18:50 | disposition home or self-care (01) | DRG 807 ==
LOC: OPOB 01-11 08:18 → OBGYN 01-11 08:18
PROVIDERS: Admitting Provider Obstetrics & Gynecology; Visit Provider Obstetrics & Gynecology
DX: O80 Encounter for full-term uncomplicated delivery (principal); Z37.0 Single live birth; Z3A.39 39 weeks gestation of pregnancy
CPT/HCPCS: 12345; 36415; 59025; 59409; 85025; 85027; 96375; 99211; J2405; J3010

== ENCOUNTER → 2020-02-22 13:50 | Outpatient (BNVA) | payer MEDICAID, SELFPAY | PROVIDERS: Visit Provider Obstetrics & Gynecology | DX: R87.612 Low grade squamous intraepithelial lesion on cytologic smear of cervix (LGSIL) (principal); Z30.011 Encounter for initial prescription of contraceptive pills; Z72.51 High risk heterosexual behavior | CPT/HCPCS: 81025; 88175 ==

== ENCOUNTER 2020-05-13 13:34 | Outpatient (CLI) | payer MEDICAID, SELFPAY ==
--- NOTE | 2020-05-13 13:44 | XRR_ITS ---
PROCEDURE INFORMATION: Exam: XR Left Wrist Exam date and time: 05/13/2020 1:56 PM Age: 24 years old Clinical indication: Pain; Wrist; Left; Additional info: L wrist pain TECHNIQUE: Imaging protocol: XR Left wrist. Views: 3 or more views. COMPARISON: No relevant prior studies available. FINDINGS: Bones/joints: Normal. Soft tissues: Normal. XR/XR wrist LT min 3V* [id number] IMPRESSION: No acute findings.
== END 2020-05-13 13:35 | disposition home or self-care (01) ==
PROVIDERS: Visit Provider Nurse Practitioner Family
DX: M25.532 Pain in left wrist (principal)
CPT/HCPCS: 73110